=== PATIENT | female | born 1995 | race American Indian/Alaskan Native ===

== ENCOUNTER 2019-04-17 10:03 | Emergency (ER) | payer SELFPAY ==
[2019-04-17 11:05] LABS: Basophils # (Auto) 0.1 K/mm3 (0.0-0.1); Basophils % (Auto) 1.5 % (0.0-1.8); Eosinophils % (Auto) 0.3 % (0.0-4.3); Hematocrit 20.4 % (30.3-42.9); Hemoglobin 6.8 gm/dl (10.1-14.3); Lymphocytes # (Auto) 2.1 K/mm3 (1.2-5.4); Lymphocytes % (Auto) 33.2 % (13.4-35.0); Mean Corpuscular HGB Conc 33 % (30-34); Mean Corpuscular Volume 75 fl (79-97); Monocytes # (Auto) 0.5 K/mm3 (0.0-0.8); Monocytes % (Auto) 7.7 % (0.0-7.3); Platelet Count 313 K/mm3 (140-440); Red Blood Count 2.71 M/mm3 (3.65-5.03)
[2019-04-17 11:09] LABS: Red Cell Distribution Width 20.8 % (13.2-15.2)
[2019-04-17 11:20] LABS: Alanine Aminotransferase 15 units/L (7-56); Albumin 4.3 g/dL (3.9-5); BUN/Creatinine Ratio 11; Blood Urea Nitrogen 8 mg/dL (7-17); Hemolysis Index 0
--- NOTE | 2019-04-17 11:54 | Emergency Department Report ---
ED Syncope HPI - General Chief Complaint: Syncope Stated Complaint: DIZZY, PASSED OUT THIS MORNING Time Seen by Provider: 04/17/19 10:24 - History of Present Illness Initial Comments: 23-year-old -Citizen Of [place] female ports that when she was getting ready for work today she had faded out. Patient reports she was down for about 3 minutes. Patient states that she was seen by her [employer] ADVISOR yesterday and was diagnosed with anemia and prediabetes. Patient reports she was had been having heavy periods but has stopped 3 days ago. Patient was seen by [facility] yesterday. Patient denies hitting her head. Patient reports that she has started taking iron yesterday as she was recommended by her [employer]EL [employer] ADVISOR. - Related Data Allergies/Adverse Reactions: Allergies No Known Allergies Allergy (Verified 04/17/19 10:05) Home Medications: Ambulatory Orders Amoxicillin [Trimox CAP] 500 mg PO Q8H 10 Days #30 capsule 09/19/18 Ibuprofen [Motrin 800 MG tab] 800 mg PO Q8HR PRN #30 tablet 09/19/18 dexAMETHasone [Decadron] 4 mg PO BID 3 Days #6 tablet 09/19/18 ED Review of Systems ROS: Stated complaint: DIZZY, PASSED OUT THIS MORNING Other details as noted in HPI ED Past Medical Hx - Past Medical History Hx Seizures: Yes Hx Asthma: Yes Additional medical history: PRE DIABETIC - Social History Smoking Status: Never Smoker Substance Use Type: Marijuana - Medications Home Medications: Home Medications Medication Instructions Recorded Confirmed Last Taken Type Amoxicillin [Trimox CAP] 500 mg PO Q8H 10 Days #30 capsule 09/19/18 Unknown Rx Ibuprofen [Motrin 800 MG tab] 800 mg PO Q8HR PRN #30 tablet 09/19/18 Unknown Rx dexAMETHasone [Decadron] 4 mg PO BID 3 Days #6 tablet 09/19/18 Unknown Rx ED Physical Exam - General Limitations: No Limitations ED Course Vital Signs 04/17/19 04/17/19 04/17/19 10:08 10:09 13:08 Temperature 98.8 F 98.8 F Pulse Rate 94 H 90 Respiratory 20 20 Rate Blood Pressure 113/61 113/61 O2 Sat by Pulse 100 100 100 Oximetry 04/17/19 04/17/19 04/17/19 13:15 13:16 13:46 Temperature Pulse Rate Respiratory 20 Rate Blood Pressure 101/59 110/66 O2 Sat by Pulse 100 100 100 Oximetry 04/17/19 04/17/19 04/17/19 15:34 15:49 16:19 Temperature 98.3 F 98.1 F 98.2 F Pulse Rate 85 94 H 90 Respiratory 18 18 18 Rate Blood Pressure 125/71 130/69 110/75 O2 Sat by Pulse 100 100 100 Oximetry 04/17/19 04/17/19 16:29 16:30 Temperature Pulse Rate 83 84 Respiratory 20 22 Rate Blood Pressure 110/66 110/66 O2 Sat by Pulse 100 100 Oximetry ED Medical Decision Making - Lab Data Result diagrams: 04/17/19 17:29 04/17/19 10:28 Laboratory Tests 04/17/19 04/17/19 04/17/19 10:28 10:28 10:28 WBC 6.3 RBC 2.71 L Hgb 6.8 L Hct 20.4 L MCV 75 L MCH 25 L MCHC 33 RDW 20.8 H Plt Count 313 Lymph % (Auto) 33.2 [place] % (Auto) 7.7 H Eos % (Auto) 0.3 Baso % (Auto) 1.5 Lymph # 2.1 [place] # 0.5 Eos # 0.0 Baso # 0.1 Seg Neutrophils % 57.3 Seg Neutrophils # 3.6 PT INR APTT Sodium 140 Potassium 4.3 Chloride 103.6 Carbon Dioxide 21 L Anion Gap 20 BUN 8 Creatinine 0.7 Estimated GFR > 60 BUN/Creatinine Ratio 11 Glucose 105 H POC Glucose Calcium 9.0 Total Bilirubin < 0.20 AST 21 ALT 15 Alkaline Phosphatase 46 Total Protein 7.4 Albumin 4.3 Albumin/Globulin Ratio 1.4 HCG, Quant < 2 Blood Type Antibody Screen Crossmatch 04/17/19 04/17/19 04/17/19 10:57 13:21 17:29 WBC 10.5 RBC 3.14 L Hgb 7.9 L Hct 24.6 L MCV 78 L MCH 25 L MCHC 32 RDW 22.5 H Plt Count 297 Lymph % (Auto) 23.2 [place] % (Auto) 12.9 H Eos % (Auto) 0.3 Baso % (Auto) 0.7 Lymph # 2.4 [place] # 1.4 H Eos # 0.0 Baso # 0.1 Seg Neutrophils % 62.9 Seg Neutrophils # 6.6 PT 13.7 INR 1.04 APTT 22.1 L Sodium Potassium Chloride Carbon Dioxide Anion Gap BUN Creatinine Estimated GFR BUN/Creatinine Ratio Glucose POC Glucose 111 H Calcium Total Bilirubin AST ALT Alkaline Phosphatase Total Protein Albumin Albumin/Globulin Ratio HCG, Quant Blood Type Antibody Screen Crossmatch 04/17/19 Unknown WBC RBC Hgb Hct MCV MCH MCHC RDW Plt Count Lymph % (Auto) [place] % (Auto) Eos % (Auto) Baso % (Auto) Lymph # [place] # Eos # Baso # Seg Neutrophils % Seg Neutrophils # PT INR APTT Sodium Potassium Chloride Carbon Dioxide Anion Gap BUN Creatinine Estimated GFR BUN/Creatinine Ratio Glucose POC Glucose Calcium Total Bilirubin AST ALT Alkaline Phosphatase Total Protein Albumin Albumin/Globulin Ratio HCG, Quant Blood Type O POSITIVE Antibody Screen Negative Crossmatch See Detail - Medical Decision Making 23-year-old -Citizen Of [place] female ports that when she was getting ready for work today she had faded out. Patient reports she was down for about 3 minutes. Patient states that she was seen by her [employer] ADVISOR yesterday and was diagnosed with anemia and prediabetes. Patient reports she was had been having heavy periods but has stopped 3 days ago. Patient was seen by [facility] yesterday. Patient denies hitting her head. Patient reports that she has started taking iron yesterday as she was recommended by her [employer]EL [employer] ADVISOR. Discussed case with Dr. Womack hospitalist. Feels patient can continue taking iron and to follow-up with her [employer] provider. Critical care attestation.: If time is entered above; I have spent that time in minutes in the direct care of this critically ill patient, excluding procedure time. ED Disposition Clinical Impression: Anemia Disposition: [id number] TO HOME OR SELFCARE Is pt being admited?: No Does the pt Need Aspirin: No Condition: Stable Instructions: Iron Deficiency Anemia (ED), Near Syncope (ED) Additional Instructions: Continue taking iron as prescribed. Increase your iron rich foods as part of your diet. Follow-up with your [employer]VEL [employer] ADVISOR provider. Referrals: MARY GRACE AN MD [Primary Care Provider] - 3-5 Days your,[employer] [Other] - 3-5 Days Forms: Work/School Release Form(ED)
[2019-04-17] MEDS ORDERED: SODIUM CHLORIDE 0.9% 500 ML 500 ML IV ONE (13:15)
[2019-04-17 13:57] LABS: INR 1.04 (0.87-1.13); Partial Thromboplastin Time 22.1 Sec. (24.2-36.6)
[2019-04-17] MEDS ORDERED: SODIUM CHLORIDE 0.9% 500 ML 500 ML ONE (15:25)
[2019-04-17 17:45] LABS: Basophils # (Auto) 0.1 K/mm3 (0.0-0.1); Basophils % (Auto) 0.7 % (0.0-1.8); Eosinophils % (Auto) 0.3 % (0.0-4.3); Hematocrit 24.6 % (30.3-42.9); Hemoglobin 7.9 gm/dl (10.1-14.3); Lymphocytes # (Auto) 2.4 K/mm3 (1.2-5.4); Lymphocytes % (Auto) 23.2 % (13.4-35.0); Mean Corpuscular HGB Conc 32 % (30-34); Mean Corpuscular Volume 78 fl (79-97); Monocytes # (Auto) 1.4 K/mm3 (0.0-0.8); Monocytes % (Auto) 12.9 % (0.0-7.3); Platelet Count 297 K/mm3 (140-440); Red Blood Count 3.14 M/mm3 (3.65-5.03)
[2019-04-17 17:47] LABS: Red Cell Distribution Width 22.5 % (13.2-15.2)
--- NOTE | 2019-04-17 17:50 | Event Note ---
Date: 04/17/19 Patient presented with syncope and low hemoglobin and hematocrit. Patient was transfused 1 unit of blood Patient's hematocrit and hemoglobin improved Hemoglobin was 7.9 And hematocrit was 24.6 Initial hemoglobin and hematocrit was 6.8 and 20.4. Was given 1 unit of packed red blood cells Patient has menorrhagia Discharge diagnosis Syncope secondary to symptomatic anemia Menorrhagia Symptomatic anemia Patient to be on ferrous gluconate 324 once a day Follow-up with [facility] for menorrhagia and possible fibroids versus hormonal imbalance
[2019-04-17 18:28] VITALS: BP 119/69
== END 2019-04-17 18:23 | disposition home or self-care (01) ==
LOC: ED 10:03
DX: D64.9 Anemia, unspecified (principal); J45.909 Unspecified asthma, uncomplicated; F12.10 Cannabis abuse, uncomplicated
CPT/HCPCS: 36415; 36430; 80053; 82962; 84702; 85025; 85610; 85730; 86850; 86900; 86901; 86920; 93005; 93010; 96360; 99283; J7040; P9016